=== PATIENT | female | born 1960 | race Caucasian/White ===

== ENCOUNTER → 2018-06-14 | Outpatient (CLI) | payer BC, OTHER ==
[~2018-06-14] MED LIST: ACE3 PO; CIPR-344 PO; DOC100 PO; HYDR-3503 PO; METR-1 PO; NO CURRENT MEDS; ONDA4TAB PO; OXYC1TAB54 PO; RAN150 PO
--- NOTE | 2018-06-14 14:15 | RADIOLOGY IMAGING REPORT ---
FAC[place] [facility] [place]IENT NAME: ZOILA TRENT : [id number] MR: [id number] V: [id number] EXAM DATE: ORDERING PHYSICIAN: KORTNEY MATA TECHNOLOGIST: Annette Oconnor PROCEDURE:BILATERAL DIGITAL SCREENING MAMMOGRAM WITH CAD ASSISTED INTERPRETATION & 3D TOMOSYNTHESIS COMPARISON:Prior mammograms 09/08/16, 08/27/15, 08/11/13, 07/25/12, 06/15/11. INDICATIONS:SCREENING FINDINGS: There are bilateral subpectoral breast implants in place. There is no evidence of implant rupture of leakage. A small amount of fibroglandular tissue is seen throughout the breasts. The parenchymal pattern has remained stable allowing for difference in mammographic technique & patient positioning. There is no evidence of malignant appearing mass, malignant appearing calcifications or other secondary sign of malignancy in either breast. DIAGNOSTIC CATEGORY 2--BENIGN FINDING. RECOMMENDATIONS: ROUTINE MAMMOGRAM AND CLINICAL EVALUATION. IMPRESSION: BIRADS 2: Benign finding. No significant abnormality is seen Dictated by: Lory Mathias M.D. on 06/14/2018 at 11:49 Transcribed by: TENA on 06/14/2018 at 14:02 Approved by: Lory Mathias M.D. on 06/14/2018 at 14:13 [facility]
== END ==
LOC: MAMO 01:37
PROVIDERS: ATTEND Nurse Practitioner Family
DX: Z12.31 Encounter for screening mammogram for malignant neoplasm of breast (principal); Z98.82 Breast implant status
CPT/HCPCS: 77063; 77067